=== PATIENT | male | born 1945 | race Caucasian/White ===

== ENCOUNTER → 2019-07-06 | Outpatient (CLI) | payer MEDICARE, BC ==
[~2019-07-06] MED LIST: ACET65TA; AVAP150T; AVOD0.5C; COUM1TAB17; COUM1TAB18; LEVO50TA2; LIPI20TA; PERC5TAB8; PROHANCE 279.3MG/ML 15ML VIAL (A9576) As Ordered ONE; PROHANCE 279.3MG/ML 5ML VIAL (A9576) As Ordered ONE; THERGRAN
--- NOTE | 2019-07-06 20:53 | REPVR ---
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 Contrast material: PROHANCE;Contrast volume: 19 ml;Contrast route: 22G ANGIO; COMPARISON: MRI-Brain W/O FOLL BY WITH 05/31/2016 9:37 AM FINDINGS: Brain: Global cerebral atrophy is consistent with patient's age. Scattered tiny T2 FLAIR signal hyperintensities within the white matter tracts of both cerebral hemispheres are unchanged. These findings are nonspecific, but typically seen with small vessel disease/chronic white matter ischemic changes of aging. Mild encephalomalacia and gliosis within the left temporal lobe is unchanged. Ventricles: Mildly prominent, consistent with global cerebral atrophy. No ventriculomegaly. Bones/joints: Unremarkable. Soft tissues: Normal. Sinuses: There is mucosal thickening of the frontal, ethmoid, and sphenoid sinuses. There is a tiny fluid level within the left maxillary sinus, which may be seen with acute sinusitis. Mastoid air cells: Normal as visualized. No mastoid effusion. Internal auditory canals: Focal nodular enhancement measuring 6 mm x 4 mm within the right internal auditory canal is unchanged compared to the prior examination. The left internal auditory canal has a normal appearance. Orbits: Unremarkable. IMPRESSION: 1. Unchanged enhancing nodule measuring 6 mm x 4 mm within the right internal auditory canal consistent with intracanalicular acoustic neuroma. 2. No acute intracranial abnormality. 3. Left temporal lobe encephalomalacia, unchanged. 4. 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 5. Mild paranasal sinus inflammatory disease. Tiny fluid level within the left maxillary sinus, which may be seen with acute sinusitis. Electronically signed by: Rk Montgomery On 07/06/2019 20:53:03 PM
== END ==
LOC: M RAD 16:37
PROVIDERS: ATTEND Otolaryngology
DX: D33.3 Benign neoplasm of cranial nerves (principal)
CPT/HCPCS: 70553; A9576

== ENCOUNTER → 2020-06-11 | Outpatient (CLI) | payer MEDICARE, BC ==
[~2020-06-11] MED LIST changes: +ACET650T61 PO; +AVOD0.5C PO; +CENT1TAB PO; +D31000TA2 PO; +KETO2CR TOP; +LEVO137T2 PO; +LOSA50TA88 PO; -PROHANCE 279.3MG/ML 15ML VIAL (A9576) As Ordered ONE; -PROHANCE 279.3MG/ML 5ML VIAL (A9576) As Ordered ONE; +SIMV40TA20 PO; +WARF-20 PO; +WARF-22 PO
== END ==
LOC: M LABSMTC 10:11
PROVIDERS: ATTEND Surgery
DX: Z11.59 Encounter for screening for other viral diseases (principal)
CPT/HCPCS: C9803; U0003

== ENCOUNTER 2020-06-15 07:54 | Day surgery (SDC) | payer MEDICARE, BC ==
[~2020-06-15] VITALS: Ht 172.7 cm; Wt 92.1 kg
[~2020-06-15 07:54] MED LIST changes: +LIDOCAINE 2% 100MG/5ML SDV (FOR ANES.) As Ordered ONE; +NS 1,000 ML IV ONE; +propofoL 200 MG/20 ML VIAL As Ordered ONE
--- NOTE | 2020-06-15 09:00 | ROOR ---
Patient Name: Erick Hansen Procedure Date: 06/15/2020 8:26 AM Date of : 1945 Age: 75 Room: [facility] Gender: Male Note Status: Finalized Procedure: Colonoscopy Indications: High risk colon cancer surveillance: Personal history of colonic polyps Providers: Rudolph Car Jr, MD Referring MD: Syd Campos MD Requesting Provider: Medicines: Propofol per Anesthesia Complications: No immediate complications. Procedure: Pre-Anesthesia Assessment: - Prior to the procedure, a History and Physical was performed, and patient medications and allergies were reviewed. The patient is competent. The risks and benefits of the procedure and the sedation options and risks were discussed with the patient. All questions were answered and informed consent was obtained. Patient identification and proposed procedure were verified by the physician and the nurse in the pre-procedure area and in the procedure room. Mental Status Examination: alert and oriented. Airway Examination: normal oropharyngeal airway and neck mobility. Respiratory Examination: clear to auscultation. CV Examination: normal. ASA Grade Assessment: II - A patient with mild systemic disease. After reviewing the risks and benefits, the patient was deemed in satisfactory condition to undergo the procedure. The anesthesia plan was to use moderate sedation / analgesia (conscious sedation). Immediately prior to administration of medications, the patient was re-assessed for adequacy to receive sedatives. The heart rate, respiratory rate, oxygen saturations, blood pressure, adequacy of pulmonary ventilation, and response to care were monitored throughout the procedure. The physical status of the patient was re-assessed after the procedure. The Colonoscope was introduced through the anus and advanced to the cecum, identified by appendiceal orifice and ileocecal valve. The colonoscopy was performed without difficulty. The patient tolerated the procedure well. The quality of the bowel preparation was adequate. Findings: The rectum, appendiceal orifice and ileocecal valve appeared normal. Scattered small and large-mouthed diverticula were found in the descending colon, transverse colon, ascending colon and cecum. Multiple small and large-mouthed diverticula were found in the sigmoid colon. Two polyps were found in the recto-sigmoid colon and sigmoid colon. The polyps were diminutive in size. These polyps were removed with a cold snare. Resection and retrieval were complete. Impression: - The rectum, appendiceal orifice and ileocecal valve are normal. - Diverticulosis in the descending colon, in the transverse colon, in the ascending colon and in the cecum. - Diverticulosis in the sigmoid colon. - Two diminutive polyps at the recto-sigmoid colon and in the sigmoid colon, removed with a cold snare. Resected and retrieved. Recommendation: - Discharge patient to home (ambulatory). - Repeat colonoscopy in 5 years for surveillance. Rudolph Car MD Rudolph Car Jr, MD 06/15/2020 9:00:08 AM Electronically signed by Rudolph Car Jr, MD Number of Addenda: 0 Note Initiated On: 06/15/2020 8:26 AM Estimated Blood Loss: Estimated blood loss: none.
[2020-06-15 09:20] VITALS: BP 135/67
== END 2020-06-15 09:30 | disposition home or self-care (01) ==
LOC: M OPP 07:54
PROVIDERS: ATTEND Surgery
DX: Z12.11 Encounter for screening for malignant neoplasm of colon (principal); Z86.010 Personal history of colon polyps; K63.5 Polyp of colon; K57.30 Diverticulosis of large intestine without perforation or abscess without bleeding; E03.9 Hypothyroidism, unspecified; Z79.01 Long term (current) use of anticoagulants; Z79.899 Other long term (current) drug therapy; Z86.73 Personal history of transient ischemic attack (TIA), and cerebral infarction without residual deficits

== ENCOUNTER → 2024-02-04 | Outpatient (CLI) | payer MEDICARE, BC ==
[~2024-02-04] MED LIST changes: -D31000TA2 PO; -LIDOCAINE 2% 100MG/5ML SDV (FOR ANES.) As Ordered ONE; +LOSA50TA28 PO; -LOSA50TA88 PO; -NS 1,000 ML IV ONE; +VITA100093 PO; -propofoL 200 MG/20 ML VIAL As Ordered ONE
== END ==
LOC: M WUC 09:38
PROVIDERS: ATTEND Family Medicine
DX: J18.9 Pneumonia, unspecified organism (principal); R06.02 Shortness of breath

== ENCOUNTER → 2024-03-09 | Outpatient (REF) | payer MEDICARE, BC ==
[2024-03-09 19:12] LABS: ATYPICAL LYMPH 3 % (0-5); LYMPHOCYTES 15 % (16-44); MONOCYTES 3 % (0-5); NEUTROPHILS 79 % (28-66); PLATELET ESTIMATE NORMAL (NORMAL)
== END ==
LOC: M LAB REF 17:35
PROVIDERS: ATTEND Family Medicine
DX: D72.829 Elevated white blood cell count, unspecified (principal)

== ENCOUNTER → 2024-03-11 | Outpatient (CLI) | payer MEDICARE, BC ==
[~2024-03-11] MED LIST changes: +ISOVUE-370 76% 100ML VIAL ONE
== END ==
LOC: M PLAIMG 08:42
PROVIDERS: ATTEND Family Medicine
DX: I51.7 Cardiomegaly (principal); I25.10 Atherosclerotic heart disease of native coronary artery without angina pectoris; R91.1 Solitary pulmonary nodule; R91.8 Other nonspecific abnormal finding of lung field; R05.3 Chronic cough
CPT/HCPCS: 71260; Q9967

== ENCOUNTER → 2024-06-14 | Outpatient (CLI) | payer MEDICARE, BC ==
[~2024-06-14] MED LIST changes: -ISOVUE-370 76% 100ML VIAL ONE
== END ==
LOC: M RAD 10:20
PROVIDERS: ATTEND Internal Medicine Pulmonary Disease
DX: R06.00 Dyspnea, unspecified (principal); R91.8 Other nonspecific abnormal finding of lung field

== ENCOUNTER → 2024-07-21 | Outpatient (REF) | payer MEDICARE, BC ==
[2024-07-21 17:45] LABS: ALKALINE PHOSPHATASE 169 U/L (46-116); ALT/SGPT 31 U/L (7.0-40); AST/SGOT 28 U/L (<34); BILIRUBIN,TOTAL 0.6 MG/DL (0.3-1.2); BLOOD UREA NITROGEN 14 MG/DL (9-23); CALCIUM LEVEL 8.6 MG/DL (8.3-10.6); CARBON DIOXIDE LEVEL 27 MMOL/L (20-31); CHLORIDE LEVEL 107 MMOL/L (98-107); CHOLESTEROL LEVEL 134 MG/DL (<200); CHOLESTEROL RISK RATIO 5.33 (<5); CREATININE FOR GFR 0.67 MG/DL (0.70-1.30); GLOMERULAR FILTRATION RATE > 60.0 (>35); GLUCOSE, FASTING 104 MG/DL (74-106); HDL CHOLESTEROL 25.1 MG/DL (>40); LDL CHOLESTEROL 79.9 MG/DL (<100); NON-HDL-C 108.9 MG/DL; POTASSIUM SERUM 4.3 MMOL/L (3.5-5.1); SODIUM LEVEL 138 MMOL/L (136-145); TOTAL PROTEIN 7.2 G/DL (5.7-8.2); TRIGLYCERIDES LEVEL 145 MG/DL (<150)
[2024-07-21 17:47] LABS: FREE T4 1.28 NG/DL (0.89-1.76)
[2024-07-21 17:49] LABS: BASO % 0.3 % (0.0-1.0); EOS # 0.1 10^3/uL (0.0-0.5); EOS % 1.1 % (0.0-3.0); HEMATOCRIT 42.5 % (42.0-52.0); HEMOGLOBIN 13.3 g/dl (13.5-17.5); LYMPH % 18.8 % (24.0-44.0); MEAN CORPUSCULAR HEMOGLOBIN 31.9 pg (27.0-33.0); MEAN CORPUSCULAR HGB CONC 31.3 g/dl (32.0-36.5); MEAN CORPUSCULAR VOLUME 101.9 fl (80.0-96.0); MONO # 0.7 10^3/uL (0.0-0.8); MONO % 6.6 % (2.0-8.0); NEUTROPHILS # 7.6 10^3/uL (1.5-8.5); NEUTROPHILS % 72.6 % (36.0-66.0); PLATELET COUNT, AUTOMATED 220 10^3/uL (150-450); RED BLOOD COUNT 4.17 10^6/uL (4.30-6.10); WHITE BLOOD COUNT 10.5 10^3/uL (4.0-10.0)
[2024-07-21 18:09] LABS: THYROID STIMULATING HORMONE 1.955 uIU/ML (0.55-4.78)
== END ==
LOC: M SFHCCAPE 08:13
PROVIDERS: ATTEND Physician Assistant Medical
DX: L29.8 Other pruritus (principal); Z86.73 Personal history of transient ischemic attack (TIA), and cerebral infarction without residual deficits; E78.5 Hyperlipidemia, unspecified; E03.9 Hypothyroidism, unspecified

== ENCOUNTER → 2024-08-18 | Outpatient (REF) | payer MEDICARE, BC ==
[2024-08-18 18:27] LABS: PSA SCREENING 2.67 NG/ML (< 4.00)
[2024-08-18 18:28] LABS: ALBUMIN 3.6 G/DL (3.2-5.2); BILIRUBIN,DIRECT 0.2 MG/DL (<0.4); BILIRUBIN,TOTAL 0.7 MG/DL (0.3-1.2); TOTAL PROTEIN 7.3 G/DL (5.7-8.2)
== END ==
LOC: M SFHCCAPE 09:39
PROVIDERS: ATTEND Physician Assistant Medical
DX: R74.8 Abnormal levels of other serum enzymes (principal); R97.20 Elevated prostate specific antigen [PSA]; Z12.5 Encounter for screening for malignant neoplasm of prostate
CPT/HCPCS: 80076; 82977; G0103

== ENCOUNTER → 2024-10-21 | Outpatient (CLI) | payer MEDICARE, BC | LOC: M CARPUL 12:19 | PROVIDERS: ATTEND Internal Medicine Cardiovascular Disease | DX: I25.10 Atherosclerotic heart disease of native coronary artery without angina pectoris (principal) ==

== ENCOUNTER → 2025-01-28 | Outpatient (CLI) | payer MEDICARE, BC | LOC: M EKG 13:34 | PROVIDERS: ATTEND Internal Medicine Cardiovascular Disease | DX: I44.0 Atrioventricular block, first degree (principal); I45.10 Unspecified right bundle-branch block; R94.31 Abnormal electrocardiogram [ECG] [EKG] ==